=== PATIENT | female | born 1940 | race Caucasian/White ===

== ENCOUNTER 2023-10-31 16:58 | Inpatient (IN) | payer MEDICARE ==
[~2023-10-31] VITALS: Ht 170.1 cm; Wt 107.1 kg
[2023-10-31 17:14] VITALS: BP 147/62
[2023-10-31 17:46] LABS: BASO # 0.1 10*3/uL (0.0-0.1); BASO % 0.8 % (0.0-1.0); EOS # 0.3 10*3/uL (0.0-0.4); EOS % 3.3 % (1.0-4.0); HEMATOCRIT 37.5 % (37.0-47.0); LYMPH # 2.3 10*3/uL (1.3-4.4); LYMPH % 28.9 % (27.0-41.0); MEAN CELL VOLUME 89.7 fl (81.0-99.0); MEAN CORPUSCULAR HGB 29.4 pg (27.0-31.0); MEAN CORPUSCULAR HGB CONC 32.8 g/dl (33.0-37.0); MEAN PLATELET VOLUME 10.5 fl (9.6-12.3); MONO # 0.6 10*3/uL (0.1-1.0); NEUT # 4.8 10*3/uL (2.3-7.9); NEUT % 59.6 % (47.0-73.0); PLATELET COUNT AUTOMATED 214 10*3/uL (130-400); RED BLOOD COUNT 4.18 10*6/uL (4.10-5.10); RED CELL DISTRI WIDTH 13.8 % (0-14.5)
[2023-10-31 18:03] LABS: ALKALINE PHOSPHATASE 64 U/L (46-116); BUN 25 mg/dl (9-23); CHLORIDE 108 mmol/L (98-107); CPK 38 U/L (34-171); POTASSIUM 3.7 mmol/L (3.4-5.1); SGPT/ALT 9 U/L (5-49); TOTAL PROTEIN 6.9 gm/dL (6.0-8.0)
[2023-10-31 18:06] LABS: ETHYL ALCOHOL < 3.0 mg/dl (<3)
[2023-10-31 20:44] LABS: BILIRUBIN Negative (Negative); BLOOD Negative (Negative); CLARITY Clear (Clear); COLOR Yellow (Yellow); GLUCOSE Negative (Negative); KETONE Negative (Negative); LEUKO ESTERASE 2+ (Negative); NITRITE Positive (Negative); PH 5.5 (4.5-8.0); SPECIFIC GRAVITY 1.015 (1.001-1.030); UROBILINOGEN 0.2 E.U./dl (0.0-1.0)
[2023-10-31 20:50] LABS: URINE AMPHETAMINES Negative (1000ng/ml); URINE BARBITURATES Negative (200ng/ml); URINE BENZODIAZEPINES Negative (200ng/ml); URINE CANNABINOIDS (THC) Negative (50ng/ml); URINE COCAINE Negative (300ng/ml); URINE METHADONE Negative (300ng/ml); URINE OPIATES Negative (300ng/ml); URINE PHENCYCLIDINE Negative (25ng/ml)
[2023-10-31 21:11] LABS: BACTERIA 2+; RBC 0-2 rbc/hpf (0-2); WBC 21-30 wbc/hpf (0-5)
[2023-10-31 21:22] VITALS: BP 146/92
[2023-10-31 22:55] VITALS: BP 150/102
[2023-11-01] MEDS ORDERED: DAILY VALUE1 EACH PO (00:41)
[2023-11-01] MEDS ORDERED: LISINOPRIL20 MG PO (00:42)
[2023-11-01] MEDS ORDERED: HYDRALAZINE HC100 MG PO (00:42)
[2023-11-01] MEDS ORDERED: LEVOTHYROXINE50 MC1 PO (00:42)
[2023-11-01] MEDS ORDERED: METOPROLOL SUC100 M1 PO (00:44)
[2023-11-01] MEDS ORDERED: SIMVASTATIN40 MG PO (00:44)
[2023-11-01] MEDS ORDERED: TYLENOL EXTRA500 MG PO (00:47)
[2023-11-01] MEDS ORDERED: NEURONTIN600 MG PO (00:49)
[2023-11-01] MEDS ORDERED: LANTUS SOL100 UNIT/1 IJ (00:50)
[2023-11-01] MEDS ORDERED: METAMUCIL660 GM PO (00:54)
[2023-11-01] MEDS ORDERED: MELATONIN1 MG PO (00:55)
[2023-11-01] MEDS ORDERED: GEMTESA75 MG PO (00:55)
[2023-11-01] MEDS ORDERED: METFORMIN HYDR500 MG PO (00:55)
[2023-11-01] MEDS ORDERED: NAMENDA-5 PO (00:57)
[2023-11-01] MEDS ORDERED: NYSTATIN15 GM T (00:57)
[2023-11-01] MEDS ORDERED: WELLBUTRIN XL150 MG PO (00:58)
[2023-11-01] MEDS ORDERED: ZOLOFT100 MG PO (00:58)
[2023-11-01] MEDS ORDERED: HUMALOG100 UNIT/1 SC (01:03)
[2023-11-01] MEDS ORDERED: hydrOXYzine pamoate 25 MG CAP PO PRN (01:05)
[2023-11-01] MEDS ORDERED: LORazepam 1 MG TAB PO PRN (01:10)
[2023-11-01] MEDS ORDERED: Ziprasidone Mesylate 20 MG VIAL IM PRN (01:10)
[2023-11-01] MEDS ORDERED: Water, Sterile 10 ML VIAL IM PRN (01:15)
[2023-11-01] MEDS ORDERED: Magnesium Hydroxide 30 ML UDC PO PRN (01:25)
[2023-11-01] MEDS ORDERED: MG-AL HYDROXIDE/SIMETICONE 30 ML UDC PO PRN (01:25)
[2023-11-01] MEDS ORDERED: Menthol/Zinc Oxide 4 GM THIN T PRN (01:35)
[2023-11-01] MEDS ORDERED: DEXTROSE 10 % IN WATER 250 ML IV PRN (02:25)
[2023-11-01] MEDS ORDERED: Levothyroxine Sodium 50 MCG TAB PO SCH (06:00)
[2023-11-01 07:10] LABS: BASO # 0.1 10*3/uL (0.0-0.1); BASO % 0.8 % (0.0-1.0); EOS # 0.3 10*3/uL (0.0-0.4); EOS % 3.4 % (1.0-4.0); LYMPH # 2.2 10*3/uL (1.3-4.4); LYMPH % 28.1 % (27.0-41.0); MEAN CELL VOLUME 88.5 fl (81.0-99.0); MEAN CORPUSCULAR HGB 29.7 pg (27.0-31.0); MEAN CORPUSCULAR HGB CONC 33.5 g/dl (33.0-37.0); MEAN PLATELET VOLUME 10.7 fl (9.6-12.3); MONO # 0.7 10*3/uL (0.1-1.0); MONO % 8.6 % (3.0-9.0); NEUT # 4.6 10*3/uL (2.3-7.9); NEUT % 58.8 % (47.0-73.0); PLATELET COUNT AUTOMATED 199 10*3/uL (130-400); RED BLOOD COUNT 4.18 10*6/uL (4.10-5.10); RED CELL DISTRI WIDTH 13.5 % (0-14.5); WHITE BLOOD COUNT 7.9 10*3/uL (4.8-10.8)
[2023-11-01] MEDS ORDERED: INSULIN LISPRO 1 UNIT/0.01 ML SQ SCH (07:30)
[2023-11-01 07:50] LABS: VITAMIN D, 25-HYDROXY 22.7 ng/mL (30-100)
[2023-11-01 07:51] LABS: POTASSIUM 3.8 mmol/L (3.4-5.1); TOTAL PROTEIN 6.5 gm/dL (6.0-8.0)
[2023-11-01 08:00] VITALS: BP 171/63
[2023-11-01] MEDS ORDERED: Rivastigmine Tartrate 4.6 MG/24 HR PATCH T SCH (09:00)
[2023-11-01] MEDS ORDERED: buPROPion SR 100 MG TAB PO SCH (09:00)
[2023-11-01] MEDS ORDERED: LISINOPRIL 20 MG TAB PO SCH (09:00)
[2023-11-01] MEDS ORDERED: NYSTATIN 15 GM BOT T SCH (09:00)
[2023-11-01] MEDS ORDERED: CEFDINIR 300 MG CAP PO SCH (09:00)
[2023-11-01] MEDS ORDERED: Sertraline Hydrochloride 50 MG TAB PO SCH (09:00)
[2023-11-01] MEDS ORDERED: Memantine Hydrochloride 5 MG TAB PO SCH (09:00)
[2023-11-01 20:00] VITALS: BP 135/49
[2023-11-01] MEDS ORDERED: SIMVASTATIN 20 MG TAB PO SCH (21:00)
[2023-11-01] MEDS ORDERED: Memantine Hydrochloride 10 MG TAB PO SCH (21:00)
[2023-11-01] MEDS ORDERED: Insulin Glargine, Recombinan 300 UNITS/3 ML PEN SC SCH (21:00)
[2023-11-02] MEDS ORDERED: VORTIOXETINE HYDROBROMIDE 10 MG TAB PO SCH (09:00)
[2023-11-02] MEDS ORDERED: Cholecalciferol 5,000 IU CAP (125 MCG) PO SCH (09:00)
[2023-11-02 20:00] VITALS: BP 168/77
[2023-11-03 07:54] VITALS: BP 168/90
[2023-11-03 20:00] VITALS: BP 175/71
[2023-11-03] MEDS ORDERED: Mirtazapine 15 MG TAB PO SCH (21:00)
[2023-11-04 08:00] VITALS: BP 163/89
[2023-11-04] MEDS ORDERED: Rivastigmine Tartrate 9.5 MG/24 HR PATCH T SCH (09:00)
[2023-11-04] MEDS ORDERED: ZINC50 M4 PO (16:31)
[2023-11-04 20:00] VITALS: BP 158/58
[2023-11-05 07:57] VITALS: BP 147/85
[2023-11-05] MEDS ORDERED: ZINC SULFATE 220 MG TAB PO SCH (09:00)
[2023-11-05] MEDS ORDERED: MODAFINIL 100 MG TAB PO SCH ×2 (10:47→14:10)
[2023-11-05 20:00] VITALS: BP 149/83
[2023-11-05 20:03] LABS: BILIRUBIN Negative (Negative); BLOOD Negative (Negative); CLARITY Cloudy (Clear); COLOR Yellow (Yellow); GLUCOSE Negative (Negative); KETONE Trace (Negative); LEUKO ESTERASE 1+ (Negative); NITRITE Negative (Negative); PH 5.5 (4.5-8.0); UROBILINOGEN 0.2 E.U./dl (0.0-1.0)
[2023-11-05 20:17] LABS: BACTERIA 1+; MUCOUS 1+; RBC 0-2 rbc/hpf (0-2)
[2023-11-06 08:37] VITALS: BP 145/70
[2023-11-06 20:00] VITALS: BP 154/76
[2023-11-07 07:21] VITALS: BP 168/73
[2023-11-07] MEDS ORDERED: RIVASTIGMINE 13.3 MG/24 HR TDM T SCH (09:00)
[2023-11-07 09:12] LABS: POTASSIUM 3.8 mmol/L (3.4-5.1)
[2023-11-07] MEDS ORDERED: SODIUM CHLORIDE 0.9% 1,000 ML IV ONE (09:25)
[2023-11-07 20:00] VITALS: BP 153/88
[2023-11-07] MEDS ORDERED: ARIPiprazole 10 MG TAB PO SCH (21:00)
[2023-11-08 06:35] LABS: BASO # 0.1 10*3/uL (0.0-0.1); BASO % 0.8 % (0.0-1.0); EOS # 0.3 10*3/uL (0.0-0.4); HEMATOCRIT 38.7 % (37.0-47.0); LYMPH # 2.6 10*3/uL (1.3-4.4); LYMPH % 30.5 % (27.0-41.0); MEAN CELL VOLUME 88.4 fl (81.0-99.0); MEAN CORPUSCULAR HGB 30.1 pg (27.0-31.0); MEAN CORPUSCULAR HGB CONC 34.1 g/dl (33.0-37.0); MEAN PLATELET VOLUME 10.8 fl (9.6-12.3); MONO # 0.7 10*3/uL (0.1-1.0); MONO % 8.4 % (3.0-9.0); NEUT # 4.8 10*3/uL (2.3-7.9); NEUT % 56.2 % (47.0-73.0); PLATELET COUNT AUTOMATED 196 10*3/uL (130-400); RED BLOOD COUNT 4.38 10*6/uL (4.10-5.10); RED CELL DISTRI WIDTH 13.7 % (0-14.5); WHITE BLOOD COUNT 8.6 10*3/uL (4.8-10.8)
[2023-11-08 07:02] LABS: POTASSIUM 3.1 mmol/L (3.4-5.1)
[2023-11-08] MEDS ORDERED: POTASSIUM CHLORIDE 20 MEQ TAB PO ONE ×2 (11:25→16:30)
[2023-11-08 20:00] VITALS: BP 151/76
[2023-11-09 08:00] VITALS: BP 182/79
[2023-11-09 20:00] VITALS: BP 139/66
[2023-11-10 08:13] VITALS: BP 176/84
[2023-11-10] MEDS ORDERED: Memantine Hydrochloride 5 MG TAB PO SCH (09:00)
[2023-11-10 10:01] LABS: ALKALINE PHOSPHATASE 71 U/L (46-116); BUN 11 mg/dl (9-23); CHLORIDE 110 mmol/L (98-107); POTASSIUM 3.7 mmol/L (3.4-5.1); SGPT/ALT 10 U/L (5-49); TOTAL PROTEIN 6.6 gm/dL (6.0-8.0)
[2023-11-10] MEDS ORDERED: DOCUSATE CALCIUM 240 MG CAP PO SCH (13:45)
[2023-11-10 20:00] VITALS: BP 128/91
[2023-11-11 08:00] VITALS: BP 183/87
[2023-11-11 20:00] VITALS: BP 154/82
[2023-11-11] MEDS ORDERED: Memantine Hydrochloride 5 MG TAB PO SCH (21:00)
[2023-11-12 08:00] VITALS: BP 159/81
[2023-11-12] MEDS ORDERED: Melatonin 5 MG TABLET PO PRN (10:45)
[2023-11-12 20:00] VITALS: BP 155/83
[2023-11-13 08:12] VITALS: BP 183/74
[2023-11-13] MEDS ORDERED: RIVASTIGMINE1 EAC2 T (09:56)
[2023-11-13] MEDS ORDERED: MIRTAZAPINE15 M2 PO (09:56)
[2023-11-13] MEDS ORDERED: ARIPIPRAZOLE10 MG PO (09:56)
[2023-11-13] MEDS ORDERED: MELATONIN5 M7 PO (11:24)
[2023-11-13 14:39] VITALS: BP 162/88
[2023-11-13] MEDS ORDERED: VITAMIN D3125 MC1 PO (15:06)
== END 2023-11-13 15:36 | DRG 885 ==
LOC: ED 16:58 → 3N 21:16
PROVIDERS: Counselor Professional; Nurse Practitioner; Nurse Practitioner Family; Registered Nurse; ADMIT Psychiatry & Neurology Psychiatry; ATTEND Psychiatry & Neurology Psychiatry
PROC: GZHZZZZ Group Psychotherapy (ICD-10-PCS; principal; 2023-11-02)
PROC: GZ51ZZZ Individual Psychotherapy, Behavioral (ICD-10-PCS; 2023-11-02)
DX: F33.1 Major depressive disorder, recurrent, moderate (principal); N17.0 Acute kidney failure with tubular necrosis; N30.00 Acute cystitis without hematuria; Z66 Do not resuscitate; N18.2 Chronic kidney disease, stage 2 (mild); F34.1 Dysthymic disorder; F41.1 Generalized anxiety disorder; G31.84 Mild cognitive impairment of uncertain or unknown etiology; R73.9 Hyperglycemia, unspecified; R00.1 Bradycardia, unspecified; E78.2 Mixed hyperlipidemia; I12.9 Hypertensive chronic kidney disease with stage 1 through stage 4 chronic kidney disease, or unspecified chronic kidney disease; E03.9 Hypothyroidism, unspecified; Z88.0 Allergy status to penicillin; Z88.8 Allergy status to other drugs, medicaments and biological substances; Z83.3 Family history of diabetes mellitus; Z82.49 Family history of ischemic heart disease and other diseases of the circulatory system